=== PATIENT | female | born 1980 | race Caucasian/White ===

== ENCOUNTER 2020-10-18 06:09 | Day surgery (SDC) | payer BC ==
[~2020-10-18] VITALS: Ht 170.2 cm; Wt 126.6 kg
[2020-10-18 07:43] LABS: HCG,QUAL RESULT NEGATIVE (NEGATIVE)
[2020-10-18] MEDS ORDERED: METOCLOPRAMIDE HCL 10 MG/2 ML VIAL IVP PRN (08:00)
[2020-10-18] MEDS ORDERED: HYDROmorphone 1 MG INJ. 1 MG/ML AMPUL IVP PRN ×2 (08:00)
[2020-10-18] MEDS ORDERED: MIDAZOLAM HCL 2 MG/2 ML VIAL (VERSED) IVP PRN (08:00)
[2020-10-18] MEDS ORDERED: ONDANSETRON HCL 4 MG/2 ML VIAL IVP PRN (08:00)
[2020-10-18] MEDS ORDERED: MEPERIDINE HCL/PF 25 MG/ML DISP.SYRIN IVP PRN (08:00)
[2020-10-18] MEDS ORDERED: LR 1,000 ML IV SCH (08:00)
[2020-10-18] MEDS: HYDROmorphone 1 MG INJ. 1 MG/ML AMPUL ONE ×2 (09:35→09:50)
[2020-10-18 10:30] VITALS: BP_SYST 117
[2020-10-18] MEDS ORDERED: HYDROcodone/ACETAMIN 5-325 MG TAB (NORCO/ VICODIN) PO ONE (11:00)
[2020-10-18] MEDS ORDERED: HYDROcodone/ACETAMIN 5-325 MG TAB (NORCO/ VICODIN) ONE (11:29)
== END 2020-10-18 12:15 | disposition home or self-care (01) ==
LOC: SDS 06:09 → SMU 06:12 → SDS 12:15
PROVIDERS: ATTEND Otolaryngology
DX: J38.3 Other diseases of vocal cords (principal); D38.0 Neoplasm of uncertain behavior of larynx; K21.9 Gastro-esophageal reflux disease without esophagitis; R49.0 Dysphonia; I10 Essential (primary) hypertension; E66.01 Morbid (severe) obesity due to excess calories; Z88.2 Allergy status to sulfonamides; Z88.5 Allergy status to narcotic agent; Z20.828 Contact with and (suspected) exposure to other viral communicable diseases
CPT/HCPCS: 31541; 36415; 84703 ×2; 88305; 88331; 88341; 88342; 88361; J1170; U0003